=== PATIENT | male | born 1975 | race Caucasian/White ===

== ENCOUNTER 2023-01-18 12:19 | Emergency (ER) | payer BC ==
[~2023-01-18] VITALS: Ht 172.7 cm; Wt 99.8 kg
[2023-01-18 12:30] VITALS: BP 157/92
--- NOTE | 2023-01-18 12:47 | NUR ---
Dr. Walsh evaluating patient at bedside
--- NOTE | 2023-01-18 12:50 | NUR ---
47 y/o M BIB self from home c/o headache x 5 days s/p head injury from mechanical fall with LOC. Patient A&Ox4, ambulatory, reports seen at [facility] with negative CT results. Patient reports headache 5/10, dull/aching/intermittent, non-radiating. Worsens with light sensitivity. Patient also reports blurry vision, dizziness. Denies OTC meds. States nausea without vomiting, diarrhea. PMH/Sx/Meds: left ankle sx 1990 NKDA
[2023-01-18] MEDS ORDERED: ONDA-188 PO (12:54)
[2023-01-18] MEDS ORDERED: MECL-303 PO (12:54)
[2023-01-18] MEDS ORDERED: ACET-10509 PO (12:54)
--- NOTE | 2023-01-18 13:11 | NUR ---
Patient discharged with v/s stable. Written and verbal after care instructions given and explained for Concussion, Adult. Patient alert, oriented and verbalized understanding of instructions. Ambulatory with steady gait. All questions addressed prior to discharge. ID band removed. Patient advised to follow up with PMD. Rx of Meclizine, Zofran ODT, Tylenol Extra Strength given. Patient educated on indication of medication including possible reaction and side effects. Opportunity to ask questions provided and answered.
== END 2023-01-18 13:11 | disposition home or self-care (01) ==
LOC: MED 12:19
DX: F07.81 Postconcussional syndrome (principal)
CPT/HCPCS: 99283